=== PATIENT | male | born 1955 | race Caucasian/White ===

== ENCOUNTER → 2018-09-24 | Outpatient (CLI) | payer OTHER | END | disposition home or self-care (01) | LOC: CFH 07:09 | PROVIDERS: ATTEND Nurse Practitioner Primary Care | DX: M23.222 Derangement of posterior horn of medial meniscus due to old tear or injury, left knee (principal); M22.42 Chondromalacia patellae, left knee ==

== ENCOUNTER 2021-02-17 08:41 | Emergency (ER) | payer OTHER ==
[~2021-02-17] VITALS: Ht 175.3 cm; Wt 134.1 kg
[2021-02-17 08:50] VITALS: BP 173/92
--- NOTE | 2021-02-17 09:02 | NUR ---
PATIENT WALKED BACK FROM TRIAGE WITH CHIEF C/O RECHECK OF NOSE BLEED. PER PATIENT HE WAS SEEN AT HOSPITAL IN [place] SATURDAY MORNING FOR NOSEBLEED AND HAD PACKING PLACED, PATIENT TOLD TO FOLLOW-UP IN 3 DAYS TO HAVE PACKING REMOVED. ANTONY, AT BEDSIDE, CALL LIGHT WITHIN REACH.
--- NOTE | 2021-02-17 09:06 | NUR ---
ERPA AT BEDSIDE FOR EVALUATION.
--- NOTE | 2021-02-17 10:09 | NUR ---
ERMD AT BEDSIDE TO DISCUSS POC.
--- NOTE | 2021-02-17 10:24 | NUR ---
Patient given discharge instructions and they have confirmed that they understand the instructions. Patient stable and ambulatory with steady gait from ED to private vehicle.
== END 2021-02-17 10:25 | disposition home or self-care (01) ==
LOC: ED 09:49
DX: R04.0 Epistaxis (principal)
CPT/HCPCS: 99281